=== PATIENT | male | born 1985 | race Caucasian/White ===

== ENCOUNTER 2025-05-05 20:28 | Emergency (ER) | payer SELFPAY ==
[~2025-05-05] VITALS: Ht 175.3 cm; Wt 68.0 kg
[2025-05-05 20:34] VITALS: BP 151/99; PULSE 99; RESP 14; TEMP 36.9; O2SAT 98
[2025-05-05] MEDS ORDERED: LEVETIRACETAM 1,000MG in NACL 100ML PREMIX IV SCH (21:00)
[2025-05-05 21:40] LABS: BASOPHILS % 2.1 % (0.0-2.0); EOSINOPHILS % 0.3 % (0.0-5.0); HEMATOCRIT. 29.2 % (42.0-52.0); HEMOGLOBIN. 9.1 g/dL (14.0-18.0); MEAN CORPUSCULAR HGB CONC 31.3 g/dL (31.0-37.0); MEAN PLATELET VOLUME 7.8 fl (7.4-10.4); MONOCYTES % 6.7 % (2.0-8.0); NEUTROPHILS % 77.9 % (40.0-76.0); PLATELET 82 x1000/uL (130-400); RED BLOOD CELL COUNT 3.65 mill/uL (4.7-6.1); RED CELL DISTRIBUTION WIDTH 19.1 % (11.6-14.6); WHITE BLOOD COUNT 3.3 x1000/uL (4.5-11.0)
[2025-05-05 21:46] LABS: CHLORIDE 99 mEq/L (98-107); POTASSIUM 3.4 mEq/L (3.5-5.1); SODIUM 135 mEq/L (136-145)
[2025-05-05 21:47] LABS: CALCIUM 9.2 mg/dL (8.7-10.4); CARBON DIOXIDE 18 mEq/L (21-32)
[2025-05-05 21:52] LABS: CREATININE 0.8 mg/dL (0.6-1.3); GLUCOSE 187 mg/dL (70-105); UREA NITROGEN BLOOD < 5 mg/dL (9-23)
[2025-05-05 21:53] LABS: ETHANOL BLOOD < 10 mg/dL (<10)
[2025-05-05] MEDS: LEVETIRACETAM 1000MG PREMIX 100 ML IV NR (22:11)
== END 2025-05-05 23:25 | disposition home or self-care (01) ==
LOC: ER 20:28
DX: R56.9 Unspecified convulsions (principal); E10.9 Type 1 diabetes mellitus without complications; Z55.6 Problems related to health literacy; Z59.71 Insufficient health insurance coverage; Z79.4 Long term (current) use of insulin
CPT/HCPCS: 80048; 80320; 85025; 36415; 96365; 99284; J1953; Z7610 ×2; G0480